=== PATIENT | female | born 1990 | race Caucasian/White ===

== ENCOUNTER 2018-06-27 22:06 | Observation (INO) | payer OTHER ==
[2018-06-27] MEDS ORDERED: NS 1,000 ML IV ONE (22:13)
[2018-06-27] MEDS ORDERED: IOPAMIDOL (ISOVUE-300) 100 ML BTL ONE (22:16)
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
[2018-06-27 22:32] LABS: PLATELET COUNT 260 10^3/uL (150-400)
[2018-06-27 22:40] LABS: PROTIME(PATIENT) 13.4 SEC (12.0-15.0)
[2018-06-27] MEDS ORDERED: ONDANSETRON 4 MG/2 ML VIAL ONE (23:28)
[2018-06-27] MEDS ORDERED: ONDANSETRON 4 MG/2 ML VIAL IVP ONE (23:32)
[2018-06-28] MEDS ORDERED: ONDANSETRON 4 MG/2 ML VIAL IVP PRN (00:58)
[2018-06-28] MEDS ORDERED: D5W NS 1,000 ML IV SCH (01:00)
[2018-06-28] MEDS: ACETAMINOPHEN 325 MG TAB PO PRN ×2 (01:12→12:19)
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
[2018-06-28] MEDS: IBUPROFEN 600 MG TAB PO SCH ×2 (06:00→14:01)
[2018-06-28] MEDS ORDERED: BACITRACIN ZINC 14.2 GM OINTTUBE TP SCH (06:00)
[2018-06-28 08:57] LABS: PLATELET COUNT 212 10^3/uL (150-400)
[2018-06-28 12:11] VITALS: BP 113/72
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
== END 2018-06-28 14:21 | disposition home or self-care (01) ==
LOC: F3E 06-28 05:40
PROVIDERS: ADMIT Surgery; ATTEND Surgery
DX: S27.321A Contusion of lung, unilateral, initial encounter (principal); S30.1XXA Contusion of abdominal wall, initial encounter; S40.012A Contusion of left shoulder, initial encounter; M54.2 Cervicalgia; F10.920 Alcohol use, unspecified with intoxication, uncomplicated; E86.9 Volume depletion, unspecified; M50.223 Other cervical disc displacement at C6-C7 level; V48.0XXA Car driver injured in noncollision transport accident in nontraffic accident, initial encounter; W22.10XA Striking against or struck by unspecified automobile airbag, initial encounter; Y92.828 Other wilderness area as the place of occurrence of the external cause; Y99.8 Other external cause status; R40.2412 Glasgow coma scale score 13-15, at arrival to emergency department; Y90.7 Blood alcohol level of 200-239 mg/100 ml
CPT/HCPCS: 70450; 71045; 71260; 72125; 72132; 72141; 74177; 96374; 96375; 97165; 99285; G0378; G0480; J2270; J2405; L0172; Q9967